=== PATIENT | female | born 1960 | race Caucasian/White ===

== ENCOUNTER 2017-02-09 09:58 | Outpatient (CLI) ==
--- NOTE | 2017-02-09 11:38 | CT ---
EXAM: CT BRAIN HISTORY: Headache TECHNIQUE: CT brain without intravenous contrast. 5-mm axial sections with Reformations. COMPARISON: None FINDINGS: Brain is unremarkable without distinct evidence of hemorrhage or large vessel distribution recent ischemic infarction. There is no suggestion of acute hydrocephalus or subdural fluid collection. N o mass or mass effect. Cranium is within normal limits. Mastoid air cells are aerated. The visualized paranasal sinuses are clear. IMPRESSION: No acute intracranial process.
== END 2017-02-09 09:59 | disposition home or self-care (01) ==
LOC: RAD 09:58
PROVIDERS: ATTEND Family Medicine
DX: R51 Headache (principal)

== ENCOUNTER 2018-05-31 13:34 | Outpatient (CLI) ==
--- NOTE | 2018-05-31 14:53 | DI ---
Exam: Five views of the lumbar spine. Comparison: None available. Reason for exam: Pain. FINDINGS: Vertebral body heights are well maintained. There is a normal appearing lumbar lordotic c urve. Mild degenerative disease is seen with osteophyte formation. 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
--- NOTE | 2018-05-31 14:53 | DI ---
EXAM: Two views of the right hip HISTORY: Pain COMPARISON: None available FINDINGS: No fracture or dislocation is identified. No significant joint space loss of the right hip is seen. There is mild marginal sclerosis of the sacroiliac joint. IMPRESSION: No acute osseous abnormality. No significant degenerative changes of the right hip. Mild degenerative changes of the right sacroiliac joint.
== END 2018-05-31 13:35 | disposition home or self-care (01) ==
LOC: RAD 13:34
PROVIDERS: ATTEND Family Medicine
DX: M25.551 Pain in right hip (principal)